=== PATIENT | female | born 1995 | race Caucasian/White ===

== ENCOUNTER 2025-08-01 17:25 | Emergency (ER) | payer OTHER, SELFPAY ==
[2025-08-01 17:41] VITALS: BP 159/92
[2025-08-01 18:26] LABS: Hematocrit 40.6 % (37.0-47.0); Hemoglobin 13.8 g/dL (12.0-16.0); Mean Corp Hgb Conc. 34.0 g/dL (33.0-37.0); Mean Corpuscular Volume 87.7 fL (81.0-99.0); Nucleated Red Blood Cells % 0 %; Platelet Count 198 10^3/uL (130-400); Red Cell Dist. Width 12.6 % (11.5-14.5)
[2025-08-01 18:45] LABS: HCG, Serum Qualitative Screen Negative
[2025-08-01 18:50] LABS: ALT (SGPT) 13 U/L (0-35); AST (SGOT) 26 U/L (14-36); Albumin 4.9 g/dl (3.5-5.0); Alkaline Phosphatase 73 U/L (38-126); Blood Urea Nitrogen 12 mg/dl (7-17); Calcium 9.9 mg/dl (8.4-10.2); Carbon Dioxide 26 mmol/L (22-30); Chloride 104 mmol/L (98-107); Glucose 89 mg/dl (70-99); Potassium 4.5 mmol/L (3.5-5.1); Sodium 136 mmol/L (135-145); Total Protein 8.2 g/dl (6.3-8.2); eGFR > 60.00
[2025-08-01 20:30] VITALS: BP 141/95
[2025-08-01 20:32] VITALS: BMI 18.0
[2025-08-01 21:00] VITALS: BP 112/81
[2025-08-01] MEDS: TYLENOL ORAL SOLUTION 650 MG PO (22:40)
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
== END 2025-08-01 22:44 | disposition home or self-care (01) ==
LOC: EMR 17:25
PROVIDERS: Registered Nurse; EMERGENCY PHYSICIAN Student in an Organized Health Care Education/Training Program; FAMILY PHYSICIAN Internal Medicine
DX: R51.9 Headache, unspecified (principal); R20.0 Anesthesia of skin
CPT/HCPCS: 99284; 70450; 80053; 84443; 84703; 85025